=== PATIENT | female | born 1960 | race Caucasian/White ===

== ENCOUNTER → 2017-10-28 08:36 | Outpatient (CLI) | payer OTHER, SELFPAY ==
--- NOTE | 2017-10-28 | DI.CT.S_ITS ---
PROCEDURE: CT CHEST ABDOMEN W CON INDICATIONS: 57 year-old female with family history of aortic aneurysm. TECHNIQUE: After the administration of oral contrast and intravenous contrast, 5 mm thick sections acquired from the lung apices to the iliac crests. 5 mm coronal and sagittal reformats were performed, with additional 7 mm coronal MIP reformats through the lungs. For radiation dose reduction, the following was used: automated exposure control, adjustment of mA and/or kV according to patient size. COMPARISON: None. FINDINGS: Image quality: Excellent. CHEST: Lungs and pleura: No acute air space opacities. No pleural effusions or pneumothorax. Central and peripheral airways are patent and normal in caliber. Mediastinum: Heart size is normal. No pericardial effusion. No mediastinal or hilar adenopathy by size criteria. Thoracic aorta and central pulmonary arteries are normal in size. Esophagus is normal in caliber. No hiatal hernia. Chest wall: No axillary or supraclavicular adenopathy by size criteria. Thyroid gland contains a 1.3 cm heterogeneous left thyroid nodule, with punctate internal calcification. ABDOMEN: Solid organs: Liver is normal in size, with diffuse fatty infiltration. Gallbladder wall thickness is normal. Biliary system is non dilated. Pancreas enhances normally. Spleen is normal in size and enhancement. No adrenal nodules. Kidneys are normal in size and enhancement, without hydronephrosis. Peritoneum and bowel: Bowel loops demonstrate normal wall thickness and caliber. There is descending and sigmoid colon diverticulosis. No free fluid or air. Nodes and vessels: No retroperitoneal or mesenteric adenopathy by size criteria. Aorta and inferior vena cava are normal in caliber, with minimal aortic atherosclerosis. Bones: No suspicious bony lesions. No vertebral body compression fractures. There is mid lumbar and lower thoracic spine disc degeneration. Miscellaneous: No ventral hernias. IMPRESSION: 1. No thoracic or abdominal aortic aneurysm. Minimal aortic atherosclerosis. 2. Descending and sigmoid colon diverticulosis. 3. Heterogeneous 1.3 cm left thyroid nodule with internal calcification is indeterminate. Recommend further characterization with dedicated thyroid ultrasound. Dictated by: Jorge Ramachandran M.D. on 10/28/2017 at 14:21 Approved by: Jorge Ramachandran M.D. on 10/28/2017 at 14:30
== END ==
PROVIDERS: PCP Obstetrics & Gynecology; Visit Provider Family Medicine
DX: Z82.49 Family history of ischemic heart disease and other diseases of the circulatory system (principal); E04.1 Nontoxic single thyroid nodule
CPT/HCPCS: 71260; 74160; Q9967

== ENCOUNTER → 2020-02-29 11:42 | Outpatient (CLI) | payer OTHER, SELFPAY ==
--- NOTE | 2020-02-29 | DI.MRI.S_ITS ---
PROCEDURE: MR LUMBAR SPINE WO CON INDICATIONS: radioapathy lumbar area TECHNIQUE: Noncontrast sagittal T1 spin echo and T2 fast echo, sagittal STIR, axial T1 and T2 fast spin echo through the lumbar spine. In cases with scoliosis, additional coronal T2 fast spin echo may be performed. COMPARISON: None. FINDINGS: Image quality: Excellent. Alignment and Curvature: There is normal bony alignment. Bone Marrow: Multilevel degenerative endplate sclerosis and spurring. Diffuse facet arthropathy. Spinal Cord: Conus medullaris terminates at the L2 level. Visualized cord demonstrates normal signal and size. Paraspinous Soft Tissues: There is nonspecific, dependent posterior subcutaneous soft tissue edema from level of L2-L5 L1-L2: Posterior annular fissure. Mild canal narrowing. No foraminal stenosis L2-L3: Mild canal narrowing. Lateral recesses appear patent. No definite foraminal stenosis. L3-L4: Mild canal narrowing. Partial effacement of both lateral recesses with bilaterally symmetric appearance. Mild to moderate right foraminal narrowing with questionable nerve root compression. Mild left foraminal stenosis also with borderline nerve root compression image 12/3. L4-L5: Dorsal epidural lipomatosis. Moderate canal narrowing, which is predominantly left-sided. Partial effacement of both lateral recesses with asymmetric appearance, left greater than right. Minimal right foraminal narrowing. No definite left foraminal stenosis L5-S1: No canal narrowing. Lateral recesses patent. No left foraminal narrowing. Degenerative facet synovial cyst versus spinal meningeal cyst occupying the right neural foramen, raising possibility of nerve root compression. IMPRESSION: Moderate L4-L5 canal narrowing related to dorsal epidural lipomatosis. Multilevel bilateral foraminal stenoses, as detailed above by spinal level. L5-S1 right facet synovial cyst (versus spinal meningeal cyst) with associated narrowing of the neural foramen and possible nerve root compression. Dictated by: Familia Harp M.D. on 02/29/2020 at 12:39 Approved by: Familia Harp M.D. on 02/29/2020 at 13:24
== END ==
PROVIDERS: PCP Family Medicine; Referring Provider Family Medicine; Visit Provider Family Medicine
DX: M54.16 Radiculopathy, lumbar region (principal); M48.061 Spinal stenosis, lumbar region without neurogenic claudication; E88.2 Lipomatosis, not elsewhere classified
CPT/HCPCS: 72148

== ENCOUNTER → 2020-07-18 12:30 | Outpatient (CLI) | payer BC, SELFPAY ==
--- NOTE | 2020-07-18 | DI.US.S_ITS ---
PROCEDURE: US ABDOMEN COMPLETE INDICATIONS: LOWER ABDOMINAL PAIN TECHNIQUE: Real-time scanning was performed of the abdominal and retroperitoneal organs, with image documentation. COMPARISON: None. FINDINGS: Liver: Liver is normal in size and homogeneous in echotexture, diffusely hyperechoic consistent with moderate fatty infiltration. Gallbladder: The gallbladder appears normal. Biliary ducts: Intrahepatic bile ducts are non-dilated. Extrahepatic bile duct caliber measures 4.5 mm. Normal is 6-7 mm or less in diameter, or 10 mm or less post-cholecystectomy. Pancreas: Visualized portions of the pancreas are sonographically normal. Spleen: Spleen is normal in size and homogeneous in echotexture. Kidneys: Kidneys are normal in size and echotexture. Right kidney measures 10.8 cm long; left kidney measures 10.5 cm long. No hydronephrosis or nephrolithiasis. No solid masses. Aorta: Visualized aorta is normal in caliber at less than 3 cm. Iliacs: Proximal common iliac arteries are normal in caliber at less than 2.5 cm. IVC: Intrahepatic inferior vena cava is patent. Miscellaneous: No free abdominal fluid. IMPRESSION: Hyperechoic liver echotexture consistent with fatty infiltration, moderate in severity. No hepatic mass lesion found. Several areas of focal sparing from otherwise diffuse fatty infiltration are best seen along the gallbladder margin. No ascites or varices are seen. The spleen is not enlarged. No acute disease. Dictated by: Remy Pierce M.D. on 07/18/2020 at 15:42 Approved by: Remy Pierce M.D. on 07/18/2020 at 15:47
--- NOTE | 2020-07-18 | DI.US.S_ITS ---
PROCEDURE: US PELVIC COMPLETE INDICATIONS: LOWER ABDOMINAL PAIN TECHNIQUE: Real-time scanning was performed of the pelvic organs, with image documentation. Additional endovaginal scanning was necessary due to incomplete visualization of the adnexal and endometrial structures by transabdominal scanning. COMPARISON: None. FINDINGS: Uterus: Surgically resected Ovaries: Not well seen due to overlying bowel gas and presumed postmenopausal ovarian atrophy. Other: No pathologic free abdominal or pelvic fluid. IMPRESSION: Prior hysterectomy, nonvisualization of the ovaries due to overlying bowel gas. If clinically indicated further assessment utilizing CT scanning or dedicated gynecological pelvic MR scanning could be obtained. Ovarian visualization generally is better with MR scanning. Overall pelvic visualization is generally better with CT scanning with contrast. Dictated by: Remy Pierce M.D. on 07/18/2020 at 16:21 Approved by: Remy Pierce M.D. on 07/18/2020 at 16:22
== END ==
PROVIDERS: PCP Family Medicine; Referring Provider Family Medicine; Visit Provider Family Medicine
DX: R10.30 Lower abdominal pain, unspecified (principal)
CPT/HCPCS: 76700; 76830; 76856

== ENCOUNTER → 2020-12-14 12:30 | Outpatient (CLI) | payer OTHER, SELFPAY ==
--- NOTE | 2020-12-14 12:31 | DI.MRI.S_ITS ---
PROCEDURE: MR LUMBAR SPINE WO CON INDICATIONS: LUMBAR RADICULOPATHY TECHNIQUE: Noncontrast sagittal T1 spin echo and T2 fast echo, sagittal STIR, axial T1 and T2 fast spin echo through the lumbar spine. In cases with scoliosis, additional coronal T2 fast spin echo may be performed. COMPARISON: [facility], MR, MR LUMBAR SPINE WO CON, 02/29/2020, 11:51. FINDINGS: Image quality: Excellent. Alignment and Curvature: There is normal bony alignment. Bone Marrow: Reactive endplate changes noted adjacent to the L2-L3, L3-L4 and L5-S1 discs. Benign, intraosseous hemangioma noted in the L5 vertebral body. No acute vertebral body compression fractures. Spinal Cord: Conus medullaris terminates at the L1-2 disc level. Visualized cord demonstrates normal signal and size. Paraspinous Soft Tissues: No paravertebral masses. T12-L1: Normal appearance. L1-L2: Loss of disc signal. Mild, diffuse disc bulge. Mild bilateral facet hypertrophy. Mild narrowing of the central canal. No neural foraminal narrowing. No neural compression. L2-L3: Loss of disc signal and slight loss of disc height. Mild, diffuse disc bulge. Mild bilateral facet hypertrophy. Mild narrowing of the central canal. Mild bilateral neural foraminal narrowing. No neural compression. L3-L4: Loss of disc signal and height. Mild, diffuse disc bulge. [id number] bilateral facet hypertrophy. Mild to moderate narrowing of the central canal. Mild to moderate bilateral neural foraminal narrowing. No neural compression. L4-L5: Loss of disc signal. Minimal, diffuse disc bulge. Moderate right and severe left facet hypertrophy. Moderate narrowing of the central canal. Mild bilateral neural foraminal narrowing. No neural compression. L5-S1: Loss of disc signal. Mild, diffuse disc bulge. Moderate right and mild left facet hypertrophy. No central stenosis. Mild right neural foraminal narrowing. No neural compression. IMPRESSION: 1. Multilevel degenerative disc disease. 2. Multilevel facet arthropathy. 3. No severe central canal narrowing. 4. No severe neural foraminal narrowing. 5. No neural compression. Dictated by: Tonja Mendez MD, PhD on 12/16/2020 at 11:05 Approved by: Tonja Mendez MD, PhD on 12/16/2020 at 11:09
== END ==
PROVIDERS: PCP Family Medicine; Referring Provider Neurological Surgery; Visit Provider Neurological Surgery
DX: M51.16 Intervertebral disc disorders with radiculopathy, lumbar region (principal); M51.17 Intervertebral disc disorders with radiculopathy, lumbosacral region; M47.26 Other spondylosis with radiculopathy, lumbar region; M47.27 Other spondylosis with radiculopathy, lumbosacral region
CPT/HCPCS: 72148

== ENCOUNTER → 2021-04-04 08:22 | Outpatient (CLI) | payer OTHER, SELFPAY ==
[2021-04-04 21:05] LABS: COVID19 - ORCAS (NP or Nasal) Negative (Negative)
== END ==
PROVIDERS: PCP Family Medicine; Visit Provider Physician Assistant Medical
DX: U07.1 COVID-19 (principal)
CPT/HCPCS: U0003